=== PATIENT | female | born 1970 | race African-American/Black ===

== ENCOUNTER 2022-07-22 22:36 | Emergency (ER) | payer BC ==
[~2022-07-22] VITALS: Ht 167.6 cm; Wt 103.9 kg
[2022-07-22 22:50] VITALS: BP 120/63
--- NOTE | 2022-07-22 23:05 | NUR ---
pt to bed #4
--- NOTE | 2022-07-22 23:15 | NUR ---
pt has episode of coughing.
--- NOTE | 2022-07-22 23:34 | NUR ---
ultrasound at the bedside
[2022-07-22] MEDS ORDERED: ACETAMIN/CODEINE 120/12MG-5ML 5 ML UDC PO ONE (23:35)
[2022-07-23] MEDS ORDERED: PRED20TA5 PO (00:33)
[2022-07-23] MEDS ORDERED: ROBAC PO (00:33)
--- NOTE | 2022-07-23 00:35 | NUR ---
Patient discharged with v/s stable. Written and verbal after care instructions given and explained. Patient alert, oriented and verbalized understanding of instructions. Carried with steady gait. All questions addressed prior to discharge. ID band removed. Patient advised to follow up with PMD. Rx of prednisolen and guafasine given. Patient educated on indication of medication including possible reaction and side effects. Opportunity to ask questions provided and answered.
[2022-07-23 00:57] VITALS: BP 120/63
== END 2022-07-23 00:35 | disposition home or self-care (01) ==
LOC: MED 22:36
DX: J20.9 Acute bronchitis, unspecified (principal); Z79.899 Other long term (current) drug therapy
CPT/HCPCS: 71045; 99283; Q0092